=== PATIENT | male | born 1975 | race Caucasian/White ===

== ENCOUNTER 2017-03-31 07:51 | Emergency (ER) | payer MEDICARE ==
--- NOTE | ~2017-03-31 | CR151 ---
[facility]. [facility] A Service of [facility] / [facility] RADIOLOGY TEXT RESULTS PATIENT: GANGA GONZALEZ LOCATION: SED : 77 UNIT #: [id number] AGE: [address]: Danna Mendosa MD SEX: M ORDER DR: [id number] [place] [address] [id number] E MR#: [id number] Acc #: [id number] NAME: GANGA GONZALEZ. : 1975 SEX: M STUDY DATE/TIME: 03/31/2017 8:13 UNIT: SED ROOM: STUDY DESCRIPTION: CR Hip Min 2 Views Rt Attending Physician: Danna Mendosa M.D. Ordering Physician: Dnana Mendosa M.D. Primary Care Physician: No Primary Care Physician MEDICAL IMAGING REPORT This report is preliminary unless electronic signature is present. EXAM Right hip pain. INDICATIONS Hip pain for 1-2 weeks. No trauma. FINDINGS AP pelvis was obtained in addition to a frog-leg right hip. 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 These do not appear significantly changed from the CT pelvis of 11/21/2009. No acute fractures. No sacroiliac joint diastases. IMPRESSION No change in the appearance of bilateral hip dysplasia. No acute findings. Dictated by... Adalberto Manzano Jr., M.D. THIS IS AN ELECTRONICALLY VERIFIED REPORT Adalberto Manzano Jr., M.D. at 03/31/2017 4:45 PM MERT/fariba TD: 03/31/2017 13:26 JOB #: [id number] MEDICAL IMAGING REPORT Page 1 of 1
[~2017-03-31 07:51] MED LIST: ACID CONTROLLER20 MG PO; ALPRAZOLAM PO; BACLOFEN20 M1 PO; BENTYL20 M1 PO; CIPRO PO; CITALOPRAM HBR10 MG PO; COMPAZINE10 MG PR; FAMOTIDINE PO; FLAGYL PO; LANSOPRAZOLE30 M3 PO; LORTAB 10/500 T1 TAB PO; LORTAB 5/500 TA1 TA1 PO; NAPROSYN500 MG PO; PHENERGAN PO; PHENERGAN25 MG PO; PRILOSEC20 MG PO; PROTONIX PO; VOLTAREN75 MG PO; XANAX0.5 MG PO
== END 2017-03-31 08:55 | disposition home or self-care (01) ==
LOC: SED 07:51
DX: M16.11 Unilateral primary osteoarthritis, right hip (principal); K21.9 Gastro-esophageal reflux disease without esophagitis; Z98.890 Other specified postprocedural states
CPT/HCPCS: 73502; 99283